=== PATIENT | male | born 1985 | race Caucasian/White ===

== ENCOUNTER 2023-06-25 08:38 | Emergency (ER) | payer SELFPAY ==
[2023-06-25 08:51] VITALS: BP 135/79; PULSE 76; RESP 16; TEMP 36.4; O2SAT 99; BMI 24.9
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
== END 2023-06-25 09:51 | disposition home or self-care (01) ==
PROVIDERS: Emergency Provider Emergency Medicine
DX: R20.2 Paresthesia of skin (principal); F17.210 Nicotine dependence, cigarettes, uncomplicated
CPT/HCPCS: 99282